=== PATIENT | female | born 1985 | race Caucasian/White ===

== ENCOUNTER 2019-09-27 11:33 | Emergency (ER) | payer MEDICAID ==
[~2019-09-27] VITALS: Ht 154.9 cm; Wt 78.0 kg
[2019-09-27 11:40] VITALS: BP 130/84; Ht 154.9 cm; Wt 78.0 kg
== END 2019-09-27 12:59 | disposition home or self-care (01) ==
LOC: ED 11:33
DX: J11.1 Influenza due to unidentified influenza virus with other respiratory manifestations (principal); R19.7 Diarrhea, unspecified; Z88.6 Allergy status to analgesic agent
CPT/HCPCS: 87804